=== PATIENT | male | born 1975 | race Caucasian/White ===

== ENCOUNTER 2023-04-28 20:20 | Emergency (ER) | payer OTHER ==
[~2023-04-28] VITALS: Ht 180.3 cm; Wt 79.4 kg
[~2023-04-28 20:20] MED LIST: IBUP600 PO; OMEP10ER PO; OXYACE5T PO; PROM25 PO; Percocet 5-3251 EACH PO
[2023-04-28 20:52] LABS: BASOPHILS ABSOLUTE AUTO 0.04 K/mm3 (0.00-0.23); BASOPHILS PERCENT AUTO 1 % (0-2); EOSINOPHILS PERCENT AUTO 4 % (0-6); Hematocrit 37.7 % (37.0-53.0); Hemoglobin 13.6 g/dL (13.5-17.5); IMMATURE GRAN ABSOLUTE AUTO 0.02 K/mm3 (0.00-0.10); IMMATURE GRAN PERCENT AUTO 0 % (0-1); LYMPHOCYTES ABSOLUTE AUTO 1.11 K/mm3 (0.84-5.20); LYMPHOCYTES PERCENT AUTO 15 % (21-46); MONOCYTES ABSOLUTE AUTO 0.51 K/mm3 (0.16-1.47); MONOCYTES PERCENT AUTO 7 % (4-13); Mean Corpuscular HGB 29.8 pg (26.0-34.0); Mean Corpuscular HGB Conc 36.1 g/dL (31.5-36.5); Mean Corpuscular Volume 83 fL (80-100); Mean Platelet Volume 10.6 fL (9.1-12.4); NEUTROPHILS ABSOLUTE AUTO 5.52 K/mm3 (1.96-9.15); NEUTROPHILS PERCENT AUTO 74 % (41-73); Platelet Count 155 K/mm3 (150-400); RDW Standard Deviation 36.2 fL (35.1-46.3); Red Blood Cell Count 4.56 M/mm3 (4.30-5.90)
[2023-04-28 21:19] LABS: Alanine Aminotransfer (ALT/SGP 20 U/L (12-78); Albumin, Blood 3.3 g/dL (3.4-5.0); Albumin/Globulin Ratio 1.1 (0.8-1.8); Alk Phos 82 U/L (50-136); Anion Gap 5 mmol/L (6-16); Aspartate Aminotrans (AST/SGOT 25 U/L (12-37); Bilirubin, Total 0.4 mg/dL (0.1-1.0); Blood Urea Nitrogen 6 mg/dL (8-24); Bun/Creatinine Ratio 6.2 (12.0-20.0); CO2, Blood 24 mmol/L (21-32); Chloride, Blood 113 mmol/L (98-108); Creatinine, Blood 0.97 mg/dL (0.60-1.20); Globulin, Blood 3.1 g/dL (2.2-4.0); Glomerular Filtration Rate 97 (60-); Glucose, Blood 94 mg/dL (70-99); Potassium, Blood 3.3 mmol/L (3.5-5.5); Sodium, Blood 142 mmol/L (136-145); Total Protein, Blood 6.4 g/dL (6.4-8.2)
[2023-04-28 22:00] VITALS: BP 139/89
[2023-04-28 22:13] LABS: Magnesium, Blood 2.2 mg/dL (1.6-2.4)
[2023-04-28 22:21] LABS: Source, Urine Clean Catch
[2023-04-28 22:24] LABS: Bilirubin, Urine Neg (Neg); Blood, Urine 2+ (Neg); Glucose Qualitative, Urine Neg (Neg); Ketones, Urine Neg (Neg); Leukocyte Esterase, Urine Neg (Neg); Nitrite, Urine Neg (Neg); Protein, Urine 2+ (Neg); Urobilinogen, Urine NORM (Normal)
[2023-04-28] MEDS ORDERED: LEVE500 PO (22:39)
[2023-04-28 22:52] LABS: U Amphetamine Screen Not Detected; U Barbituate Screen Not Detected; U Benzodiazapine Screen Not Detected; U Buprenorphine Screen Not Detected; U Cannabinoids Screen Not Detected; U Cocaine Screen Not Detected; U Methadone Screen Not Detected; U Methamphetamine Screen Not Detected; U Opiates Screen Not Detected; U Oxycodone Screen Not Detected; U Phencyclidine Screen Not Detected; U Propoxyphene Screen Not Detected
[2023-04-28 22:54] LABS: Prolactin 7.5 ng/mL (2.5-17.4)
[2023-04-28 22:56] LABS: Appearance, Urine Clear (Clear); Bacteria Rare /hpf; Color, Urine Yellow (P-Yellow); Red Blood Cells, Urine 0-2 /hpf (0-2); Squamous Epithelial Cells Rare /hpf (Few); White Blood Cells, Urine 0-2 /hpf (0-5)
[2023-04-28 23:56] LABS: Ethanol (Alcohol), Blood, Med <3 mg/dL
== END 2023-04-28 22:48 | disposition left against medical advice (07) ==
LOC: ER 20:20
PROVIDERS: Student in an Organized Health Care Education/Training Program
DX: R56.9 Unspecified convulsions (principal); Z53.29 Procedure and treatment not carried out because of patient's decision for other reasons
CPT/HCPCS: 70450; 80053; 81001; 83735; 84146; 85025; 93005; 93010; 99284-25; G0480